=== PATIENT | male | born 1980 | race Caucasian/White ===

== ENCOUNTER 2016-12-08 07:58 | Emergency (ER) | payer BC, OTHER ==
[2016-12-08] MEDS ORDERED: Diphth/Teta/Acell Pertusis* 0.5 ML VIAL ** FOR 6 WKS TO 7 YRS OLD IM ONE (08:26)
--- NOTE | 2016-12-08 11:15 | RAD ---
INDICATION: Laceration to the second finger on a piece of glass COMPARISON: None. TECHNIQUE: 4 views of the left hand were obtained. FINDINGS: The adequately corticated bones are in normal alignment. No significant focal osseous abnormality or fracture is seen. Joint spaces appear maintained. On the AP view of the hand there is a small round dense focus at the radial aspect of the proximal pole of the left index finger proximal phalanx. This density is not seen on other projections. IMPRESSION: Possible soft tissue foreign body at the radial aspect at the proximal pole of the left index finger proximal phalanx. Please correlate to location of laceration and physical examination.
--- NOTE | 2016-12-08 16:07 | ED ---
Merlin Nguyen SooYoung, scribed for Mahad Oneal MD on 12/08/16 at 0831 . Laceration/Wound HPI - HPI Summary HPI Summary: A 36 y/o M presents to ED with small lac to L hand on 2nd finger onset 729 while pt was working in his garage. Pt believes it's from a piece of broken lightbulb that was stuck between two boards. Associated sx: mild pain with flexion. He is still able to move and flex his finger, denies any numbness. Unsure of his last tetanus, possibly 8-10 years ago. Pt is L-handed. - History of Current Complaint Stated Complaint: LT HAND /FINGER LAC Time Seen by Provider: 12/08/16 08:25 Hx Obtained From: Patient Mechanism of Injury: Sharp/Blunt Trauma Onset/Duration: Sudden Onset, Lasting Hours, Still Present Current Severity: Mild Pain Intensity: 3 Pain Scale Used: 0-10 Numeric Associated Signs & Symptoms: Pain - mild - Allergy/Home Medications Allergies/Adverse Reactions: Allergies Allergy/AdvReac Type Severity Reaction Status Date / Time No Known Allergies Allergy Verified 12/08/16 09:18 PMH/Surg Hx/FS Hx/Imm Hx Previously Healthy: Yes Opthamlomology History: Denies: Hx Legally Blind Infectious Disease History: Denies: Traveled Outside the [place] in Last 30 Days - Social History Occupation: Employed Part-time Lives: Alone Review of Systems Positive: Arthralgia - mildly at site of lac Positive: Other - pos: 1.5 cm lac to 2nd finger on L hand Negative: Numbness All Other Systems Reviewed And Are Negative: Yes Physical Exam - Summary Physical Exam Summary: The patient is well-nourished in no acute distress and in no acute pain. The skin is warm and dry and skin color reflects adequate perfusion. SMALL 1.5 CM LAC ON DORSUM OF PIP JOINT OF 2ND FINGER ON L HAND. SMALL ABRASION ON 4TH FINGER. HEENT: The head is normocephalic and atraumatic. The pupils are equal and reactive. The conjunctivae are clear and without drainage. Nares are patent and without drainage. The external ears are intact. Neck is supple with full range of motion and non-tender. There are no carotid bruits. There is no neck vein distension. Respiratory: Chest is non-tender. Lungs are clear to auscultation and breath sounds are symmetrical and equal. Cardiovascular: Heart is regular rate and rhythm. There is no murmur or rub auscultated. There is no peripheral edema and pulses are symmetrical and equal. Musculoskeletal: There is no back pain noted. Extremities are non-tender with full range of motion. There is good capillary refill. There is no peripheral edema or calf tenderness elicited. NO MOTOR WEAKNESS, FROM. NO OTHER INJURIES. Neurological: Patient is alert and oriented to person, place and time. The patient has symmetrical motor strength in all four extremities. Cranial nerves are grossly intact. Deep tendon reflexes are symmetrical and equal in all four extremities. Psychiatric: The patient has an appropriate affect and does not exhibit any anxiety or depression. Triage Information Reviewed: Yes Vital Signs On Initial Exam: Initial Vitals Temp Pulse Resp BP Pulse Ox 98 F 87 18 135/70 98 12/08/16 08:06 12/08/16 08:06 12/08/16 08:06 12/08/16 08:06 12/08/16 08:06 Vital Signs Reviewed: Yes Procedures - Laceration/Wound Repair 1 Location: upper extremity - L hand, PIP joint, 2nd finger Description: Linear Anesthesia: Digital, 2.0%, Lido Length, Depth and Shape: .75cm long, well approximated width, 3mm deep Betadine Prep?: Yes Laceration/Wound Explored: clean Closure: Single Layer Suture Type: Nylon - 5-0 Number of Sutures: 3 Layer Closure?: No Sterile Dressing Applied?: Yes - with triple ABX and guaze, dorsal foam splint Diagnostics - Vital Signs Vital Signs Temp Pulse Resp BP Pulse Ox 12/08/16 08:13 98 F 87 18 135/70 99 12/08/16 08:06 98 F 87 18 135/70 98 - Laboratory Lab Statement: Any lab studies that have been ordered have been reviewed, and results considered in the medical decision making process. - Radiology Hand XR Xray Interpretation: Positive (See Comments) - IMPRESSION: Possible soft tissue foreign body at the radial aspect at the proximal pole of the left index finger proximal phalanx. Please correlate to location of laceration and physical examination. Radiology Interpretation Completed By: Radiologist Laceration Repair Course/Dx - Course Course Of Treatment: Pt is a 36 y/o M presenting with small lac to L hand on 2nd finger onset 729 from a piece of broken lightbulb. Associated sx: mild pain with flexion. He is still able to move and flex his finger, denies any numbness. Unsure of his last tetanus, possibly 8-10 years ago. Pt is L-handed. Pt given tetanus shot. Hand XR impression: Possible soft tissue foreign body at the radial aspect at the proximal pole of the left index finger proximal phalanx. Please correlate to location of laceration and physical examination. Lac repair performed by ROHITH Ma. Small tear of tendon noted when performing repair. D/C home with finger splint, Keflex, and f/u with britta Stewart. - Differential Dx Differental Diagnoses: Foreign Body, Fracture, Laceration, Tendon Laceration - Clinical Impression Provider Diagnoses: Laceration of left index finger Discharge - Discharge Plan Condition: Stable Disposition: HOME Prescriptions: Cephalexin CAP* [Keflex CAP*] 500 mg PO QID #20 cap Patient Education Materials: Splint Care (ED), Finger Laceration (ED), Cephalexin (By mouth) Referrals: [facility]ERR[facility] [Outside] No Primary Care Phys,NOPCP [Primary Care Provider] - Raymond Mosquera MD [Medical Doctor] - 2 Days Additional Instructions: Follow up with asif Stewart. Keep wound dressing in place for 48 hours, and recheck in two days with the orthropedist, at the ED, Urgent Care or your Primary Care Provider. Have your stitches removed in 14 days. Wear your splint for the whole time. You can cleanse the wound 2x a day after the first 48 hours. The documentation as recorded by the Merlin simmons SooYoung accurately reflects the service I personally performed and the decisions made by me, Mahad Oneal MD.
== END 2016-12-08 11:00 | disposition home or self-care (01) ==
LOC: ED 07:58
DX: S61.211A Laceration without foreign body of left index finger without damage to nail, initial encounter (principal); W25.XXXA Contact with sharp glass, initial encounter; Y93.89 Activity, other specified; Y92.015 Private garage of single-family (private) house as the place of occurrence of the external cause
CPT/HCPCS: 12001; 90471; 99282